=== PATIENT | female | born 1955 | race Caucasian/White ===

== ENCOUNTER 2018-09-07 00:41 | Outpatient (CLI) | payer BC, SELFPAY ==
--- NOTE | 2018-09-07 15:44 | DI.MAMMO_ITS ---
SYMPTOMS/DIAGNOSIS: SCREENING, Z12.31 BILATERAL SCREENING MAMMOGRAM: Comparison is made with exams from 2010 through 2016. The breasts are composed of fatty density tissue. No suspicious masses or suspicious microcalcifications are seen. There has been no significant change. IMPRESSION: Category 1A, negative mammogram. Routine screening is recommended. [facility] ASSESSMENT OF FINDINGS: Negative. Category 1. Patient will receive a letter notifying them of these results. BI-RAD category A. The breasts are almost entirely fatty.
== END 2018-09-07 01:01 ==
PROVIDERS: PCP Family Medicine; Visit Provider Family Medicine
DX: Z12.31 Encounter for screening mammogram for malignant neoplasm of breast (principal)
CPT/HCPCS: 77063; 77067

== ENCOUNTER 2018-12-24 14:26 | Outpatient (CLI) | payer BC, SELFPAY ==
--- NOTE | 2018-12-24 14:22 | DI.RAD_ITS ---
SYMPTOM/DIAGNOSIS: S/P REVISION RT TKA RIGHT KNEE: Comparison is made with 12 July 2017. The patient has undergone revision of the femoral component of the knee prosthesis with a long stem component. The tibial portion of the prosthesis as well as patellar component appear unchanged. There are no abnormal bony lucencies. IMPRESSION: No acute abnormality.
== END 2018-12-24 14:46 ==
PROVIDERS: PCP Family Medicine; Visit Provider Student in an Organized Health Care Education/Training Program
DX: M25.561 Pain in right knee (principal); Z96.651 Presence of right artificial knee joint; G89.29 Other chronic pain
CPT/HCPCS: 73560

== ENCOUNTER 2019-03-22 11:24 | Outpatient (REF) | payer BC, SELFPAY ==
[2019-03-25 09:50] LABS: Hepatitis C Ab w Rflx HCV PCR Negative (NEGAT)
== END 2019-03-22 11:44 ==
LOC: NCHCN 11:24
PROVIDERS: PCP Family Medicine; Visit Provider Family Medicine
DX: Z11.59 Encounter for screening for other viral diseases (principal)
CPT/HCPCS: 86803

== ENCOUNTER 2019-09-20 10:55 | Day surgery (SDC) | payer BC, SELFPAY ==
[2019-09-20 11:06] VITALS: BP 135/96; PULSE 90; RESP 17; TEMP 36.1; O2SAT 97
[2019-09-20] MEDS: Lactated Ringers 1,000 ML 80 ML IV (11:36)
--- NOTE | 2019-09-20 12:49 | W.PM.DSUDISC ---
Discharge Plan Disposition Patient Disposition: HOME Condition: Good Discharge Details Reason For Visit: Colonoscopy Attending Provider: Melvi Hoffman Primary Care Provider: Dona Silva Home Meds and New Rx's Prescriptions: Continued Centrum Silver Women 8 mg iron-400 mcg-300 mcg tablet 1 tab PO DAILY RF: 0 ibuprofen [Advil] 200 MG tablet 800 mg PO PRN RF: 0 lamotrigine 200 MG tablet 200 mg PO BID RF: 0 clonazepam [Klonopin] 2 MG tablet 2 mg PO DIRECTED RF: 0 dextroamphetamine-amphetamine [Adderall] 20 MG tablet 20 mg PO DAILY RF: 0 Discharge Instructions Additional Instructions: Findings: Your colonoscopy was normal. Follow up: Plan for colonoscopy in 5 years due to history of polyps Please call if you develop: fevers >101.5 Nausea or Vomiting Abdominal pain that is not transient DAY SURGERY UNIT POST COLONOSCOPY INSTRUCTIONS 1. Because there will be medication in your system for the next 24 hours, you may feel a little sleepy. Your coordination will be affected. Therefore: a. Do not drive or operate dangerous equipment for 24 hours. b. Do not drink alcohol beverages for 24 hours (not even beer). c. Plan to go home and rest for the day. 2. Generally there are no restrictions on your activity after a day or so has gone by, but you may feel a bit fatigued for a few days. 3 After you arrive home you may have a light meal and return to a normal diet as you can tolerate it without feeling sick to your stomach. 4. After surgery, you may feel pain or discomfort. This should be only transient, but if it persists please contact your doctor. 5. If there are any questions regarding the findings of your procedure, please feel free to contact your doctor. 6. If you are unable to contact your doctor with a problem, contact the hospital at [phone]. 7. Continue all your regular medications unless directed otherwise. I understand the above instructions and have no questions. Signature of Patient or Responsible Adult Escort Date/Time Name of Responsible Adult Escort Signature of Nurse Date/Time Activity:: Activity as Tolerated Diet:: As Tolerated Discharge Orders Discharge Orders: Discharge Order (Routine); Ordered 09/20/19 Ordered By: Melvi Hoffman DS: Diagnosis Discharge Diagnosis (1) Normal colonoscopy: Status: Acute
[2019-09-20 13:15] VITALS: BP 123/77; PULSE 68; RESP 17; TEMP 36.3; O2SAT 96
--- NOTE | 2019-09-23 10:26 | COLE_ITS ---
DATE OF PROCEDURE: September 20, 2019 PREOPERATIVE DIAGNOSIS: History of colon polyps. POSTOPERATIVE DIAGNOSIS: Normal colon. PROCEDURE: Colonoscopy. SURGEON: Melvi Hoffman M.D. ANESTHESIA: General. INDICATIONS: This is a 63-year-old lady whose last colonoscopy in 2013 showed two polyps. She prese nts for routine follow-up. She has no family history of colon cancer. PROCEDURE: She was placed in the left Elaine position. Propofol was titrated to sedation. Digital re ctal examination revealed no abnormalities. The scope was advanced to the cecum without difficulty. The ileocecal valve and appendiceal orifice were clearly identified. The scope was slowly withdrawn with no abnormalities seen within the ascending, transverse, descending, sigmoid colon or rectum, in cluding on retroflex view. She tolerated the procedure well and was stable to recovery. She will ne ed a follow-up colonoscopy again in five years, or sooner if symptoms indicate. cc: Dona Silva M.D.
== END 2019-09-20 14:03 | disposition home or self-care (01) ==
PROVIDERS: PCP Family Medicine; Visit Provider Surgery
PROC: 0DJD8ZZ Inspection of Lower Intestinal Tract, Via Natural or Artificial Opening Endoscopic (ICD-10-PCS; CPT 45378; principal; 2019-09-20 12:15)
DX: Z12.11 Encounter for screening for malignant neoplasm of colon (principal); Z86.010 Personal history of colon polyps; K21.9 Gastro-esophageal reflux disease without esophagitis
CPT/HCPCS: 45378

== ENCOUNTER 2019-12-09 14:33 | Outpatient (CLI) | payer BC, SELFPAY ==
--- NOTE | 2019-12-09 14:15 | DI.RAD_ITS ---
EXAM: XR KNEE RT 2V AP,LAT INDICATION: ANNUAL F/U. COMPARISON: XR knee RT 2V AP,lat from 12/24/2018 TECHNIQUE: 2D digital imaging was performed. FINDINGS: There are stable postsurgical changes of a right total knee replacement. No evidence of hardware karissa lure is seen. The bones are intact. Soft tissues are unremarkable.
--- NOTE | 2019-12-09 14:47 | DI.RAD_ITS ---
EXAM: XR SHOULDER RT COMPLETE 2+V INDICATION: eval R shoulder pain. COMPARISON: No exams were available for comparison TECHNIQUE: 2D digital imaging was performed. FINDINGS: There is an old healed fracture deformity of the right clavicle. Mild hypertrophic changes are seen at the acromioclavicular joint. There is a moderate-sized spur arising from the inferior aspect of t he acromion. Mild narrowing is seen at the greater tuberosity. The glenohumeral joint appears well maintained. Bones are intact and normally mineralized. The soft tissues are unremarkable. . IMPRESSION: Degenerative changes of the right shoulder.
== END 2019-12-09 14:53 ==
PROVIDERS: PCP Family Medicine; Visit Provider Student in an Organized Health Care Education/Training Program
DX: M25.511 Pain in right shoulder (principal); M75.81 Other shoulder lesions, right shoulder; M19.011 Primary osteoarthritis, right shoulder; Z96.651 Presence of right artificial knee joint; Z47.1 Aftercare following joint replacement surgery
CPT/HCPCS: 73030; 73560

== ENCOUNTER 2019-12-25 01:22 | Outpatient (CLI) | payer BC, SELFPAY ==
--- NOTE | 2019-12-25 08:46 | DI.NM_ITS ---
EXAM: NM HEPATOBILIARY CCK GRP CLINICAL HISTORY: EPIGASTRIC PAIN, R10.13. COMPARISON: No exams were available for comparison TECHNIQUE: 4.8 millicuries of technetium 99 M mebrofenin were administered IV. FINDINGS: There is normal hepatic uptake. The biliary tree is promptly visualized. The small bowel is also prom ptly visualized. 1.5 micrograms of CCK was administered via IV drip over 45 minutes. The gallbladder ejection fraction is 50 percent which is at the low normal range. The lower limit of normal is 40 pe rcent. IMPRESSION: Gallbladder ejection fraction is within the normal range.
== END 2019-12-25 01:42 ==
PROVIDERS: PCP Family Medicine; Visit Provider Family Medicine
DX: R10.13 Epigastric pain (principal)
CPT/HCPCS: 78227

== ENCOUNTER 2020-01-07 09:33 | Outpatient (REF) | payer BC, SELFPAY ==
[2020-01-07 12:38] LABS: HCT 41.7 % (36.0-46.0); HGB 13.8 g/dL (12.0-15.5); Mean Corp. HGB Concentration 33.1 g/dL (32.0-36.0); Mean Corpuscular Hemoglobin 29.4 pg (27.0-33.0); Mean Corpuscular Volume 88.7 fL (80-95); Mean Platelet Volume 10.8 fL (8.0-11.0); Platelet Count 201 x1000/uL (130-400); RBC Distribution Width 12.7 % (11.7-14.6); White Blood Cell Count 3.82 k/cumm (4.4-10.8)
[2020-01-07 14:47] LABS: ALT 15 U/L (14-59); AST 15 U/L (15-37); Albumin 3.7 g/dL (3.4-5.0); BUN 11 mg/dL (7-18); Bilirubin, Total 0.5 mg/dL (0.2-1.0); CREATININE 0.76 mg/dL (0.55-1.02); Chloride 107 mmol/L (98-107); Cholesterol 213 mg/dL (<200); Glucose 84 mg/dL (74-106); Sodium 144 mmol/L (136-145); Total Protein 6.5 g/dL (6.4-8.2); Triglyceride 94 mg/dL (<150)
[2020-01-07 15:11] LABS: Alkaline Phosphatase 81 U/L (46-116); Calcium 8.6 mg/dL (8.5-10.1); Calculated LDL 148 mg/dL (<100); HDL Cholesterol 47 mg/dL (40-60)
== END 2020-01-07 09:53 ==
LOC: NCHCN 09:33
PROVIDERS: PCP Family Medicine; Visit Provider Family Medicine
DX: Z00.00 Encounter for general adult medical examination without abnormal findings (principal); I10 Essential (primary) hypertension; R30.0 Dysuria
CPT/HCPCS: 80053; 80061; 85027; 87077; 87086; 87186

== ENCOUNTER 2020-01-16 18:14 | Outpatient (REF) | payer BC, SELFPAY ==
--- NOTE | 2020-01-16 16:00 | PAPFT_PTH ---
PATIENT: America Crump [facility] U[id number] AGE/SX: 64/F ROOM: RE01/16/[address]: Dona Silva : 1955 BED: DIS: 01/16/2020 SPEC #: [id number] RECD: 01/17/20 13:05 STATUS: GREGORY RECheng #: [id number] STEPHANIE: 01/16/20 16:[address]: Dona Silva DEPT: [facility] Cytology RECD BY: Rosalie Dodson Tissues: 1 - CX/ENDOCX FOR PAP SMEARS Procedures: PAP THIN PREP/UVM Screening HPV DNA PROBE Comments: [id number]
== END 2020-01-16 18:34 ==
LOC: NCHCN 18:14
PROVIDERS: PCP Family Medicine; Visit Provider Family Medicine
DX: Z00.00 Encounter for general adult medical examination without abnormal findings (principal); Z01.419 Encounter for gynecological examination (general) (routine) without abnormal findings; Z12.4 Encounter for screening for malignant neoplasm of cervix; Z11.51 Encounter for screening for human papillomavirus (HPV)
CPT/HCPCS: 88142; 87624

== ENCOUNTER 2020-01-24 15:19 | Outpatient (REF) | payer BC, SELFPAY | END 2020-01-24 15:39 | LOC: NCHCN 15:19 | PROVIDERS: PCP Family Medicine; Visit Provider Family Medicine | DX: R30.0 Dysuria (principal) | CPT/HCPCS: 87077; 87086; 87186 ==

== ENCOUNTER 2020-03-09 14:45 | Outpatient (REF) | payer BC, SELFPAY | END 2020-03-09 15:05 | LOC: NCHCN 14:45 | PROVIDERS: PCP Family Medicine; Visit Provider Family Medicine | DX: R30.0 Dysuria (principal) | CPT/HCPCS: 87077; 87086; 87186 ==

== ENCOUNTER 2020-09-04 03:58 | Outpatient (CLI) | payer BC, SELFPAY ==
--- NOTE | 2020-09-04 13:10 | DI.MAMMO_ITS ---
EXAM: MG MAMMO SCREENING CLINICAL HISTORY: SCREENING, Z12.31 TECHNIQUE: Mammograms were interpreted according to the usual protocol including computer analysis w [employer] system, tomosynthesis and C-view imaging. COMPARISON: FINDINGS: The breasts are of moderate density with fairly symmetrical distribution of fibroglandular tissue. N o dominant mass or clumped microcalcification is identified in either breast. The current examinatio n is compared with previous examinations including August 2018 and there has been no gross interval change in appearance in comparison with the prior studies. IMPRESSION: No specific evidence of malignancy at this time. Routine screening examinations are suggested at yea rly intervals in this age group according to the ACS ACR guidelines. BI-RADS Category 1 - Negative Breast Density - Category B - Scattered areas of fibroglandular density
== END 2020-09-04 04:18 ==
PROVIDERS: PCP Family Medicine; Visit Provider Family Medicine
DX: Z12.31 Encounter for screening mammogram for malignant neoplasm of breast (principal)
CPT/HCPCS: 77063; 77067

== ENCOUNTER 2020-11-09 12:50 | Outpatient (REF) | payer BC, SELFPAY ==
[2020-11-09 21:28] LABS: HCT 44.7 % (36.0-46.0); HGB 14.6 g/dL (11.2-15.7); MCHC 32.7 % (32.0-36.0); MCV 88.7 fL (80-95); MPV 10.7 fL (8.0-11.0); Platelet Count 230 10^3/uL (130-400); RBC 5.04 10^6/uL (3.93-5.22); RDW 11.9 % (11.7-14.6); RDW-SD 38.5 fL; WBC 3.68 10^3/uL (4.4-10.8)
[2020-11-09 21:51] LABS: ALT 13 U/L (14-59); AST 13 U/L (15-37); Albumin 3.8 g/dL (3.4-5.0); Alkaline Phosphatase 90 U/L (46-116); Anion Gap 9.3 mmol/L (3-11); BUN 13 mg/dL (7-18); Bilirubin, Total 0.7 mg/dL (0.2-1.0); CO2 26.7 mmol/L (21.0-32.0); CREATININE 0.93 mg/dL (0.55-1.02); Calcium 8.8 mg/dL (8.5-10.1); Calculated LDL 161 mg/dL (<100); Chloride 109 mmol/L (98-107); Cholesterol 228 mg/dL (<200); Glucose 94 mg/dL (74-106); HDL Cholesterol 50 mg/dL (40-60); Sodium 145 mmol/L (136-145); Total Protein 6.8 g/dL (6.4-8.2); Triglyceride 87 mg/dL (<150)
== END 2020-11-09 13:10 ==
LOC: NCHCN 12:50
PROVIDERS: PCP Family Medicine; Visit Provider Family Medicine
DX: Z00.00 Encounter for general adult medical examination without abnormal findings (principal); I10 Essential (primary) hypertension
CPT/HCPCS: 80053; 80061; 85027

== ENCOUNTER 2021-05-03 22:40 | Outpatient (REF) | payer BC, SELFPAY | END 2021-05-03 22:41 | disposition home or self-care (01) | LOC: NCHCN 22:40 | PROVIDERS: PCP Family Medicine; Visit Provider Family Medicine | DX: R30.0 Dysuria (principal) | CPT/HCPCS: 87077; 87086; 87186 ==

== ENCOUNTER 2021-05-14 13:25 | Outpatient (REF) | payer BC, SELFPAY | END 2021-05-14 13:26 | disposition home or self-care (01) | LOC: NCHCN 13:25 | PROVIDERS: PCP Family Medicine; Visit Provider Family Medicine | DX: R30.0 Dysuria (principal) | CPT/HCPCS: 87086 ==

== ENCOUNTER 2021-08-05 09:31 | Outpatient (REF) | payer BC, SELFPAY ==
[2021-08-05 16:22] LABS: Hemoglobin A1C 5.2 % (<5.7)
[2021-08-05 16:33] LABS: ALT 17 U/L (14-59); AST 15 U/L (15-37); Albumin 3.8 g/dL (3.4-5.0); Alkaline Phosphatase 96 U/L (46-116); Anion Gap 8.9 mmol/L (3-11); BUN 8 mg/dL (7-18); Bilirubin, Total 0.3 mg/dL (0.2-1.0); CO2 27.1 mmol/L (21.0-32.0); Calcium 8.8 mg/dL (8.5-10.1); Calculated LDL 160 mg/dL (<100); Chloride 108 mmol/L (98-107); Cholesterol 229 mg/dL (<200); Glucose 85 mg/dL (74-106); HDL Cholesterol 54 mg/dL (40-60); Potassium 4.6 mmol/L (3.5-5.1); Sodium 144 mmol/L (136-145); Total Protein 6.8 g/dL (6.4-8.2); Triglyceride 76 mg/dL (<150)
== END 2021-08-05 09:32 | disposition home or self-care (01) ==
LOC: NCHCN 09:31
PROVIDERS: PCP Family Medicine; Visit Provider Family Medicine
DX: I10 Essential (primary) hypertension (principal); Z00.00 Encounter for general adult medical examination without abnormal findings
CPT/HCPCS: 80053; 80061; 83036

== ENCOUNTER 2022-08-08 14:52 | Outpatient (REF) | payer BC, SELFPAY ==
[2022-08-08 15:36] LABS: HGB 13.9 g/dL (11.2-15.7); MCH 29.1 pg (27.0-33.0); MCHC 33.1 % (32.0-36.0); MCV 88 fL (80-95); MPV 10.7 fL (8.0-11.0); Platelet Count 203 10^3/uL (130-400); RBC 4.77 10^6/uL (3.93-5.22); RDW-SD 39.1 fL; WBC 4.11 10^3/uL (4.4-10.8)
[2022-08-08 16:02] LABS: ALT 22 U/L (14-59); AST 20 U/L (15-37); Albumin 3.7 g/dL (3.4-5.0); Alkaline Phosphatase 92 U/L (46-116); Anion Gap 8.2 mmol/L (3-11); BUN 16 mg/dL (7-18); Bilirubin, Total 0.5 mg/dL (0.2-1.0); CO2 28.8 mmol/L (21.0-32.0); CREATININE 0.9 mg/dL (0.55-1.02); Calcium 8.6 mg/dL (8.5-10.1); Calculated LDL 78 mg/dL (<100); Chloride 107 mmol/L (98-107); Cholesterol 150 mg/dL (<200); Estimated GFR 71.39 (mL/min/1.73m2); Glucose 81 mg/dL (74-106); HDL Cholesterol 59 mg/dL (40-60); Sodium 144 mmol/L (136-145); Total Protein 6.8 g/dL (6.4-8.2); Triglyceride 66 mg/dL (<150)
== END 2022-08-08 14:53 | disposition home or self-care (01) ==
LOC: NCHCN 14:52
PROVIDERS: PCP Family Medicine; Visit Provider Family Medicine
DX: I10 Essential (primary) hypertension (principal); E66.9 Obesity, unspecified; Z00.00 Encounter for general adult medical examination without abnormal findings
CPT/HCPCS: 80053; 80061; 85027

== ENCOUNTER 2022-09-18 10:31 | Emergency (ER) | payer BC, SELFPAY ==
[2022-09-18 10:37] VITALS: BP 135/80; PULSE 86; RESP 16; TEMP 36.9; O2SAT 99
--- NOTE | 2022-09-18 10:45 | DI.RAD_ITS ---
Exam(s) XR HEEL LT OS CALCIS EXAM: XR HEEL LT OS CALCIS CLINICAL HISTORY: fall/pain. TECHNIQUE: 2D digital imaging was performed. COMPARISON: CR XR ANKLE 3 VIEWS LEFT from 11/30/2019 FINDINGS: Two views of the calcaneus: No evidence of fracture. Boehler's angle maintained. No radiographic evidence of skin ulcer nor ost eomyelitis. No foreign body. Bone density appears normal. Inferior calcaneal spur is noted. IMPRESSION: No acute osseous findings. DATA REPOSITORY: RADIATION DOSE DELIVERED:
--- NOTE | 2022-09-18 10:45 | DI.RAD_ITS ---
Exam(s) XR KNEE LT 4V+ EXAM: XR KNEE LT 4V+ CLINICAL HISTORY: fall/pain. TECHNIQUE: 2D digital imaging was performed. COMPARISON: CR XR KNEE RT 2V AP,LAT from 12/09/2019 FINDINGS: Four views: There is no evidence of obvious acute fracture nor obvious joint effusion. No joint space narrowing. Mild degenerative changes. On the AP view there is a 2 millimeter osteophytic density seen the joint space just above the tibial spine. Other possibly this may represent an independent loose intra-articular body. IMPRESSION: Findings as above. Cannot exclude avulsion injury of the tibial spine which would often be associate d with ACL injury. If clinically indicated follow-up knee MRI can be performed. DATA REPOSITORY: RADIATION DOSE DELIVERED:
--- NOTE | 2022-09-18 10:49 | W.ED.GENAD ---
Discharge Plan Disposition Patient Disposition: HOME Condition: Stable Discharge Details Clinical Impression: Fracture of left tibial spine Primary Care Provider: Dona Silva ED Provider: Andrews Velasquez Home Meds and New Rx's Prescriptions: Continued estradiol [Yuvafem] 10 mcg tablet 10 mcg vaginal DAILY ibuprofen [Advil] 200 MG tablet 800 mg PO PRN clonazepam 1 mg tablet 1 mg PO BID PRN dextroamphetamine-amphetamine [Adderall XR] 25 mg capsule,extended release 24hr 25 mg PO DAILY rosuvastatin [Crestor] 20 mg tablet 20 mg PO DAILY lamotrigine 200 MG tablet 200 mg PO BID Discharge Instructions Additional Instructions: X-ray and CT imaging reveals a nondisplaced fracture of the lateral tibial spine. Wear the hinged knee brace until reevaluation with orthopedics. I would also use your walker at home to help protect your ambulating but you may bear weight as you have been bearing weight for the past 2 weeks. Given your overall presentation I have also set you up for an ultrasound tomorrow, radiology will be reaching out to set this up. After the ultrasound you return to the ER for the results. Otherwise reach out to the orthopedic group tomorrow to discuss your ER visit set up outpatient reevaluation Referrals: Winston Regan MD [ [facility] STAFF PHYSICIAN] - Discharge Data Discharge Date/Time-TO BE ENTERED AT DEPARTURE: 09/18/22 14:32 Medical Decision Making This is a 66-year-old female who reports that she had a fall approximately 2 weeks ago injuring her left knee. Subsequently felt the injury was getting better but is unsure because she states she has a high pain tolerance. Yesterday, no additional injury, awoke with increased knee and left heel pain. Clinically she appears well, nontoxic but does ambulate with an antalgic gait. There is diffuse knee discomfort, slight leg swelling, and calcaneal pain. No erythema or warmth. Difficult to say whether this swelling is secondary to the trauma 2 weeks ago or completely unrelated. While this appears more musculoskeletal in nature I do believe obtaining an ultrasound is reasonable, we will set her up for ultrasound tomorrow. We will obtain x-ray of the left knee and calcaneus. X-ray of calcaneus unremarkable. X-ray of left knee concerning for avulsion of the tibial spine. Case discussed with Dr. Regan, patient has been ambulatory for 2 weeks on this injury, recommend a hinged brace, protective ambulation moving forward, and he will be happy to follow the patient in his clinic. He does state that a CT may be beneficial for additional information here in the ER and they could pursue MRI as an outpatient if necessary. This plan was discussed with patient. CT obtained and results are as below. Hinged knee brace applied. She has a walker at home that she can use. Patient reports the brace certainly feels better. While she does have a known injury, the circumstances regarding her discomfort is slightly atypical and I do believe obtaining ultrasound is still reasonable. Appropriate paperwork completed for ultrasound tomorrow. Standard discharge and return precautions were provided. Patient understands, is agreeable to this plan, and has no additional questions or concerns upon discharge. This documentation was generated using [employer] system, please disregard any oddities of phrase or misspellings. Medical Records Medical records reviewed: Yes I reviewed the patient's medical records. Imaging Data Radiologic Study: Attestation: I personally reviewed and interpreted this imaging study as follows: Imaging: X-Ray Radiologist's impression: PROCEDURE INFORMATION: Exam: XR Left Calcaneus Exam date and time: 09/18/2022 11:45 AM Age: 66 years old Clinical indication: Other: Fall/ pain; Patient HX: Fall/pain TECHNIQUE: Imaging protocol: Radiologic exam of the Left calcaneus. Views: 2 or more views. COMPARISON: CR XR ANKLE 3 VIEWS LEFT 11/30/2019 1:37 PM FINDINGS: Bones/joints: There is a 0.8 cm plantar spur. Minimal enthesopathic changes in the posterosuperior calcaneal tuberosity. Soft tissues: Normal. IMPRESSION: No acute fracture or dislocation. Radiologic Study #2: Attestation: I personally reviewed and interpreted this imaging study as follows: Imaging: X-Ray Radiologist's impression: PROCEDURE INFORMATION: Exam: XR Left Knee Exam date and time: 09/18/2022 11:48 AM Age: 66 years old Clinical indication: Other: Fall/pain TECHNIQUE: Imaging protocol: Radiologic exam of the Left knee. Views: 4 or more views. COMPARISON: CR XR HEEL LT OS CALCIS 09/18/2022 11:45 AM FINDINGS: Bones/joints: There is subtle nondisplaced fracture of lateral tibial spine in the intercondylar region suspected, best seen in the AP view . Mild DJD with marginal spurring and spurring of the medial tibial spine noted. Soft tissues: Normal. IMPRESSION: Subtle avulsion fracture of the lateral tibial spine in the intercondylar region suspected seen in the AP view. Radiologic Study #3: Attestation: I personally reviewed and interpreted this imaging study as follows: Imaging: X-Ray Radiologist's impression: PROCEDURE INFORMATION: Exam: CT Left Lower Extremity With Contrast, Knee Exam date and time: 09/18/2022 12:31 PM Age: 66 years old Clinical indication: Left; Patient HX: Lt knee pain, tibial spine FX seen on x-ray TECHNIQUE: Imaging protocol: CT of the Left lower extremity with intravenous contrast was performed. Exam focused on the knee. Radiation optimization: All CT scans at this facility use at least one of these dose optimization techniques: automated exposure control; mA and/or kV adjustment per patient size (includes targeted exams where dose is matched to clinical indication); or iterative reconstruction. COMPARISON: CR XR KNEE LT 4V+ 09/18/2022 11:48 AM FINDINGS: Bones/joints: Small nondisplaced cortical irregularity suspicious of occult fracture of the posterior aspect of the lateral tibial spine in the intercondylar region ( 78 series 2, 309 series 4). There is a 3 mm loose body superior to the medial tibial spine (38 series 6). No definite fracture of the medial tibial spine. Additionally, punctate loose bodies in the intercondylar region (37 series 6). Otherwise, mild narrowing of the lateral compartment. Mild narrowing in the patellofemoral compartment along the lateral patellar facet. . No significant joint effusion. Minimal osteochondral defects in the femoral trochlea (53 series 2 ) and medial and lateral tibial plateau, likely degenerative. Spurring in the medial and the lateral femoral condyles. Soft tissues: Mild edema in the subcutaneous soft tissues anteriorly most pronounced anterior to the patella. Trace edema in the medial subcutaneous soft tissues. Mild edema noted in the Hoffa fat pad IMPRESSION: Subtle cortical irregularity in the posterior lateral tibial spine which corresponds to the x-ray abnormality suspicious of nondisplaced occult fracture of the lateral tibial spine. Additional punctate loose bodies in the intercondylar region with a 3 mm loose body superior to the medial tibial spine.Otherwise, no acute fracture. No dislocation. Mild edema in the Hoffa fat pad and superficial anteromedial soft tissues. If the patient continues to have pain, consider follow-up with MRI to exclude any ligamentous or meniscal injury. Thank you for allowing us to participate in the care of your patient. HPI General Mode of arrival: ambulatory. Date/Time Provider Initiated Documentation: 09/18/22 10:49. Limitations to Documentation: no limitations. Information obtained by: patient. HPI Narrative: This is a 66-year-old female, past medical history of anxiety, fibromyalgia, hyperlipidemia, GERD, presenting to the ER for left leg pain. Patient reports that she had a mechanical fall a couple of weeks ago injuring her left knee, it was sore for a couple of days but then seemed to get better. She reports that on second maybe she has had pain in that area the entire time but simply has a high pain tolerance and is unsure if the pain is related to the fall or not. She states that she has a walker at home but has not been using it. She states that yesterday morning she awoke with pain in her heel which has not been present over the past couple of weeks. This feels new and different than her other pain. She denies redness, chest pain, shortness of breath, history of DVT or PE. She has not tried any [id number] medications for her symptoms. Related Data Home Medications Medication Instructions Recorded Confirmed lamotrigine 200 mg tablet 200 mg PO BID 06/09/14 08/25/22 ibuprofen 200 mg tablet (Advil) 800 mg PO PRN 07/12/17 08/25/22 clonazepam 1 mg tablet 1 mg PO BID PRN 05/11/22 08/25/22 dextroamphetamine-amphetamine ER 25 mg PO DAILY 05/11/22 08/25/22 25 mg 24hr capsule,extend release (Adderall XR) rosuvastatin 20 mg tablet (Crestor) 20 mg PO DAILY 05/11/22 08/25/22 estradiol 10 mcg vaginal tablet 10 mcg vaginal DAILY 07/26/22 08/25/22 (Yuvafem) Allergies Allergy/AdvReac Type Severity Reaction Status Date / Time citalopram Allergy Severe unknown Verified 08/25/22 11:10 codeine Allergy Intermediate unknown Verified 08/25/22 11:10 fluoxetine [From Prozac] AdvReac Intermediate unknown Verified 08/25/22 11:10 sulfamethoxazole AdvReac Intermediate Nausea Verified 08/25/22 11:10 [From Bactrim] trimethoprim [From Bactrim] AdvReac Intermediate Nausea Verified 08/25/22 11:10 duloxetine [From Cymbalta] AdvReac Mild unknown Verified 08/25/22 11:10 General Stated Complaint: Orthopedic MAKENZIE: 3 Review of Systems Constitutional Constitutional: Denies fever(s) and Denies weakness Cardiovascular Cardiovascular: Denies chest pain and Denies dyspnea Respiratory Respiratory: Denies cough and Denies dyspnea Musculoskeletal Musculoskeletal: Reports arthralgias, Denies numbness, Reports stiffness and Denies tingling Integumentary/Breasts Skin/Breast: Denies rash Neurologic Neurologic: Denies numbness, Denies tingling and Denies weakness Hematologic/Lymphatic Hematologic/Lymphatic: Denies easy bleeding and Denies easy bruising PFSH All Active Problems Fracture of left tibial spine (Acute) Trigger finger, left middle finger (Acute) Bilateral carpal tunnel syndrome (Acute) Dupuytren's contracture of left hand (Acute) Left hand pain (Acute) Paresthesias in left hand (Acute) Impingement syndrome of right shoulder (Acute) Normal colonoscopy (Acute) Fibromyalgia (Acute) Insomnia (Acute) Anxiety (Chronic) ADD (attention deficit disorder) (Acute) Adenomatous polyps (Acute) 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) Medical History Adenomatous colon polyp GERD (gastroesophageal reflux disease) Loose right total knee arthroplasty PTSD (post-traumatic stress disorder) Surgical History H/O colonoscopy H/O esophagogastroduodenoscopy H/O wisdom tooth extraction Status post laparoscopic Lisa fundoplication Social History Smoking/Tobacco Use Status: Former Tobacco Use Quit Date: 11/27/96 Smoking risk assessment performed?: Yes Alcohol Intake: former Drug use: Never Substance use type: does not use Do you feel safe at home: Yes Do you feel safe in your relationship?: Yes Exam Const General: cooperative, healthy appearing, comfortable and no acute distress Orientation: alert and awake [facility] Head: normal to inspection, normocephalic and atraumatic Eyes Conjunctivae: conjunctivae normal Neck Neck: normal visual inspection, full ROM, trachea midline and supple Resp Effort & Inspection: normal respiratory effort and able to speak in complete sentences Auscultation: clear to auscultation bilaterally Cardio Rate: regular rate Rhythm: regular rhythm Skin General skin exam: no rashes or lesions noted Neuro General: patient alert, patient awake, moves all extremities and no focal motor deficits Cognition: normal cognition Speech: speech normal Gait: antalgic Motor: muscle tone normal throughout Sensory Exam: no sensory deficits noted Extrem General: capillary refill normal Other: Right lower extremity unremarkable. Left lower extremity, calf slightly larger when compared to the right calf. Normal pedal pulse and capillary refill. There is diffuse mild calcaneal discomfort on the left side but no swelling or erythema. Neuro, vascular, tendon intact. Left knee with full extension but limited flexion. Knee is stable, no laxity. There is diffuse discomfort across both the anterior and posterior aspect of the knee. No erythema or warmth. Psych Appearance: grossly normal Mental Status: mental status grossly normal Course Vital Signs Vital signs: Vital Signs Temperature 36.9 C 09/18/22 10:37 Pulse 86 09/18/22 10:37 Respiratory Rate 16 09/18/22 10:37 Blood Pressure 135/80 09/18/22 10:37 Pulse Oximetry 99 09/18/22 10:37 Temperature 36.9 C 09/18/22 10:37 Temperature Source Skin 09/18/22 10:37 Pulse 86 09/18/22 10:37 Respiratory Rate 16 09/18/22 10:37 Blood Pressure 135/80 09/18/22 10:37 Blood Pressure Position Sitting 09/18/22 10:37 Pulse Oximetry 99 09/18/22 10:37 Oxygen Delivery Method Room Air 09/18/22 10:37 Oxygen Flow Rate 0 09/18/22 10:37 Pain Level 3 09/18/22 10:37 Comment 09/18/22 10:37
--- NOTE | 2022-09-18 12:03 | DI.VRAD_ITS ---
PROCEDURE INFORMATION: Exam: XR Left Calcaneus Exam date and time: 09/18/2022 11:45 AM Age: 66 years old Clinical indication: Other: Fall/ pain; Patient HX: Fall/pain TECHNIQUE: Imaging protocol: Radiologic exam of the Left calcaneus. Views: 2 or more views. COMPARISON: CR XR ANKLE 3 VIEWS LEFT 11/30/2019 1:37 PM FINDINGS: Bones/joints: There is a 0.8 cm plantar spur. Minimal enthesopathic changes in the posterosuperior calcaneal tuberosity. Soft tissues: Normal. IMPRESSION: No acute fracture or dislocation. Dictated and Authenticated by: Hernandez Cartagena MD. Ordering:HIWOT Sparrow MD
--- NOTE | 2022-09-18 12:10 | DI.VRAD_ITS ---
PROCEDURE INFORMATION: Exam: XR Left Knee Exam date and time: 09/18/2022 11:48 AM Age: 66 years old Clinical indication: Other: Fall/pain TECHNIQUE: Imaging protocol: Radiologic exam of the Left knee. Views: 4 or more views. COMPARISON: CR XR HEEL LT OS CALCIS 09/18/2022 11:45 AM FINDINGS: Bones/joints: There is subtle nondisplaced fracture of lateral tibial spine in the intercondylar region suspected, best seen in the AP view . Mild DJD with marginal spurring and spurring of the medial tibial spine noted. Soft tissues: Normal. IMPRESSION: Subtle avulsion fracture of the lateral tibial spine in the intercondylar region suspected seen in the AP view. Dictated and Authenticated by: Hernandez Cartagena MD. Ordering:HIWOT Sparrow MD
--- NOTE | 2022-09-18 12:15 | DI.CT_ITS ---
Exam(s) CT LOWER EXTREMITY LT WO EXAM: CT LOWER EXTREMITY LT WO CLINICAL HISTORY: knee, tibial spine fx on xray. TECHNIQUE: Imaging Protocol: Axial computed tomography images with coronal and sagittal reformatted images were created and reviewed. CONTRAST MATERIAL: None COMPARISON: CT RIGHT LOWER EXTREM WO CONTRAST from 08/01/2017 FINDINGS: There are no fracture lines evident in the tibial plateau nor in the distal femur and condyles nor in the fibular head and neck. There are few small calcific densities evident in the mid aspect of the knee joint. On the lateral view 1 of these appears to be possible fracture through the upper aspect of the tibial spine. There are some degenerative changes in the medial lateral compartments-mild mod erate. Also mild degenerative changes in the patellofemoral compartment. Mild amount of increased fluid noted in the suprapatellar bursa. IMPRESSION: There appears to be a nondisplaced avulsion fragment at the tibial spine level. Recommend follow-up MRI. RADIATION DOSE DELIVERED: 291.9mGy.cm Total DLP DATA REPOSITORY: All CT scans at this facility are submitted to the National Radiology Data Registry (NRDR) Dose Index Registry (DIR) with the [employer] ([employer]). RADIATION OPTIMIZATION: All CT scans at this facility use at least one of these dose optimization te chniques: automated exposure control; mA and/or kV adjustment per patient size (includes targeted exa ms where dose is matched to clinical indication); or iterative reconstruction.
[2022-09-18 12:17] VITALS: BP 124/76; PULSE 69; RESP 16; O2SAT 98
--- NOTE | 2022-09-18 13:28 | DI.VRAD_ITS ---
PROCEDURE INFORMATION: Exam: CT Left Lower Extremity With Contrast, Knee Exam date and time: 09/18/2022 12:31 PM Age: 66 years old Clinical indication: Left; Patient HX: Lt knee pain, tibial spine FX seen on x-ray TECHNIQUE: Imaging protocol: CT of the Left lower extremity with intravenous contrast was performed. Exam focused on the knee. Radiation optimization: All CT scans at this facility use at least one of these dose optimization techniques: automated exposure control; mA and/or kV adjustment per patient size (includes targeted exams where dose is matched to clinical indication); or iterative reconstruction. COMPARISON: CR XR KNEE LT 4V+ 09/18/2022 11:48 AM FINDINGS: Bones/joints: Small nondisplaced cortical irregularity suspicious of occult fracture of the posterior aspect of the lateral tibial spine in the intercondylar region ( 78 series 2, 309 series 4). There is a 3 mm loose body superior to the medial tibial spine (38 series 6). No definite fracture of the medial tibial spine. Additionally, punctate loose bodies in the intercondylar region (37 series 6). Otherwise, mild narrowing of the lateral compartment. Mild narrowing in the patellofemoral compartment along the lateral patellar facet. . No significant joint effusion. Minimal osteochondral defects in the femoral trochlea (53 series 2 ) and medial and lateral tibial plateau, likely degenerative. Spurring in the medial and the lateral femoral condyles. Soft tissues: Mild edema in the subcutaneous soft tissues anteriorly most pronounced anterior to the patella. Trace edema in the medial subcutaneous soft tissues. Mild edema noted in the Hoffa fat pad IMPRESSION: Subtle cortical irregularity in the posterior lateral tibial spine which corresponds to the x-ray abnormality suspicious of nondisplaced occult fracture of the lateral tibial spine. Additional punctate loose bodies in the intercondylar region with a 3 mm loose body superior to the medial tibial spine. Otherwise, no acute fracture. No dislocation. Mild edema in the Hoffa fat pad and superficial anteromedial soft tissues. If the patient continues to have pain, consider follow-up with MRI to exclude any ligamentous or meniscal injury. Dictated and Authenticated by: Hernandez Cartagena MD. Ordering:HIWOT Sparrow MD
== END 2022-09-18 14:32 | disposition home or self-care (01) ==
PROVIDERS: Emergency Provider Physician Assistant; PCP Family Medicine
DX: S82.115A Nondisplaced fracture of left tibial spine, initial encounter for closed fracture (principal); W19.XXXA Unspecified fall, initial encounter
CPT/HCPCS: 99284; 73564; 73650; 73700

== ENCOUNTER 2022-09-19 15:24 | Emergency (ER) | payer BC, SELFPAY ==
[2022-09-19 15:28] VITALS: BP 129/85; PULSE 104; RESP 18; TEMP 36.4; O2SAT 96
--- NOTE | 2022-09-19 17:30 | W.ED.GENAD ---
Discharge Plan Disposition Patient Disposition: HOME Condition: Stable Discharge Details Clinical Impression: Encounter to discuss test results Primary Care Provider: Dona Silva ED Provider: Liz Byers Home Meds and New Rx's Prescriptions: No Action estradiol [Yuvafem] 10 mcg tablet 10 mcg vaginal DAILY ibuprofen [Advil] 200 MG tablet 800 mg PO PRN clonazepam 1 mg tablet 1 mg PO BID PRN dextroamphetamine-amphetamine [Adderall XR] 25 mg capsule,extended release 24hr 25 mg PO DAILY rosuvastatin [Crestor] 20 mg tablet 20 mg PO DAILY lamotrigine 200 MG tablet 200 mg PO BID Discharge Instructions Instructions: Leg Pain (ED) Additional Instructions: The ultrasound is negative for any blood clots. Please follow-up with orthopedics as previously instructed. Follow up with primary care provider in 3-5 days. Return to ED sooner if any worsening or concerns. Increase oral fluids. Referrals: Winston Regan MD [ [facility] STAFF PHYSICIAN] - Discharge Data Discharge Date/Time-TO BE ENTERED AT DEPARTURE: 09/19/22 17:41 Medical Decision Making Discussed negative ultrasound with patient who verbalized understanding. Patient discharged to home. HPI General Mode of arrival: ambulatory. Date/Time Provider Initiated Documentation: 09/19/22 15:31. Limitations to Documentation: no limitations. Information obtained by: patient, RN notes reviewed and old records reviewed. HPI Narrative: Patient here for US results. Negative for DVT. Discussed results and follow-up with Ortho verbalized understanding. No further questions. Related Data Home Medications Medication Instructions Recorded Confirmed lamotrigine 200 mg tablet 200 mg PO BID 06/09/14 09/19/22 ibuprofen 200 mg tablet (Advil) 800 mg PO PRN 07/12/17 09/19/22 clonazepam 1 mg tablet 1 mg PO BID PRN 05/11/22 09/19/22 dextroamphetamine-amphetamine ER 25 mg PO DAILY 05/11/22 09/19/22 25 mg 24hr capsule,extend release (Adderall XR) rosuvastatin 20 mg tablet (Crestor) 20 mg PO DAILY 05/11/22 09/19/22 estradiol 10 mcg vaginal tablet 10 mcg vaginal DAILY 07/26/22 09/19/22 (Yuvafem) Allergies Allergy/AdvReac Type Severity Reaction Status Date / Time citalopram Allergy Severe unknown Verified 09/19/22 15:31 codeine Allergy Intermediate unknown Verified 09/19/22 15:31 fluoxetine [From Prozac] AdvReac Intermediate unknown Verified 09/19/22 15:31 sulfamethoxazole AdvReac Intermediate Nausea Verified 09/19/22 15:31 [From Bactrim] trimethoprim [From Bactrim] AdvReac Intermediate Nausea Verified 09/19/22 15:31 duloxetine [From Cymbalta] AdvReac Mild unknown Verified 09/19/22 15:31 General Stated Complaint: Recheck MAKENZIE: 4 Review of Systems Musculoskeletal Musculoskeletal: Reports arthralgias PFSH All Active Problems Fracture of left tibial spine (Acute) Encounter to discuss test results (Acute) Trigger finger, left middle finger (Acute) Bilateral carpal tunnel syndrome (Acute) Dupuytren's contracture of left hand (Acute) Left hand pain (Acute) Paresthesias in left hand (Acute) Impingement syndrome of right shoulder (Acute) Normal colonoscopy (Acute) Fibromyalgia (Acute) Insomnia (Acute) Anxiety (Chronic) ADD (attention deficit disorder) (Acute) Adenomatous polyps (Acute) 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) Medical History Adenomatous colon polyp GERD (gastroesophageal reflux disease) Loose right total knee arthroplasty PTSD (post-traumatic stress disorder) Surgical History H/O colonoscopy H/O esophagogastroduodenoscopy H/O wisdom tooth extraction Status post laparoscopic Lisa fundoplication Social History Smoking/Tobacco Use Status: Former Tobacco Use Quit Date: 11/27/96 Smoking risk assessment performed?: Yes Alcohol Intake: former Drug use: Never Substance use type: does not use Do you feel safe at home: Yes Do you feel safe in your relationship?: Yes Exam Extrem Left lower extremity: normal to inspection (Presents wearing a knee immobilizer and using a walker) and normal capillary refill Course Vital Signs Vital signs: Vital Signs Temperature 36.4 C L 09/19/22 15:28 Pulse 104 H 09/19/22 15:28 Respiratory Rate 18 09/19/22 15:28 Blood Pressure 129/85 09/19/22 15:28 Pulse Oximetry 96 09/19/22 15:28 Temperature 36.4 C L 09/19/22 15:28 Temperature Source Tympanic 09/19/22 15:28 Pulse 104 H 09/19/22 15:28 Respiratory Rate 18 09/19/22 15:28 Respiratory Effort Non-Labored 09/19/22 15:31 Blood Pressure 129/85 09/19/22 15:28 Pulse Oximetry 96 09/19/22 15:28 Oxygen Delivery Method Room Air 09/19/22 15:28 Oxygen Flow Rate 0 09/19/22 15:28 Pain Level 5 09/19/22 15:28
== END 2022-09-19 17:41 | disposition home or self-care (01) ==
PROVIDERS: Emergency Provider Registered Nurse Emergency; PCP Family Medicine
DX: Z71.2 Person consulting for explanation of examination or test findings (principal)

== ENCOUNTER → 2022-11-23 01:39 | Outpatient (CLI) | payer BC, SELFPAY ==
--- NOTE | 2022-11-23 | DI.MAMMO_ITS ---
Exam(s) MAMMO SCREENING EXAM: MAMMO SCREENING CLINICAL HISTORY: SCREENING MAMMO Z12.31 TECHNIQUE: Bilateral full field digital CC and MLO mammographic images were obtained with 3D tomosyn thesis and utilizing computer aided detection (CAD). COMPARISON: Available for comparison. FINDINGS: Masses/Architectural Distortion: None seen. Microcalcifications: No suspicious pleomorphic-type are seen. Skin Thickening/Nipple Retraction: None. IMPRESSION: 1. No significant interval change with no specific features of malignancy noted. 2. Unless there is more urgent need, screening mammography is recommended, as per [employer] guidelines. BI-RADS Category 1 - Negative Breast Density - Category B - Scattered areas of fibroglandular density Breast density category C or D implies that the patient has dense breast tissue. Dense breast tissue is very common and is not abnormal but dense breast tissue can make it harder to find cancer on a ma mmogram. Also, dense breast tissue may increase their breast cancer risk. This information about the result of the mammogram report was provided to the patient to raise their awareness. Use this report when you speak with the patient about their risks for breast cancer, which includes their family hist ory. At that time, you may recommend for more screening tests (Ultrasound or MRI) as they might be us eful based on their risk. A negative radiographic report should not delay biopsy if a dominant or clinically suspicious mass is present. Up to ten percent of cancers are not identified on mammography. A negative report may reinforce clinical impression. Adenosis and dense breasts may obscure an underlying neoplasm. False positive reports average 6 to 10%. Patient will receive a letter notifying them of these results.
== END ==
PROVIDERS: PCP Family Medicine; Visit Provider Family Medicine
DX: Z12.31 Encounter for screening mammogram for malignant neoplasm of breast (principal)
CPT/HCPCS: 77063; 77067

== ENCOUNTER 2023-02-23 16:08 | Outpatient (REF) | payer MEDICARE, SELFPAY ==
[2023-02-24 22:37] LABS: Campylobacter PCR Negative (Negative); Salmonella PCR Negative (Negative); Shiga Toxin PCR Negative (Negative); Shigella/Enteroinvasive Ecoli Negative (Negative)
== END 2023-02-23 16:09 | disposition home or self-care (01) ==
LOC: NCHCN 16:08
PROVIDERS: PCP Family Medicine; Visit Provider Family Medicine
DX: R19.7 Diarrhea, unspecified (principal)
CPT/HCPCS: 87329; 87505; 87177

== ENCOUNTER 2023-05-31 18:23 | Emergency (ER) | payer MEDICARE, SELFPAY ==
--- NOTE | 2023-05-31 18:15 | RT.EKG_ITS ---
APPROVED REPORT Exam: Resting ECG Reason for Exam: high bp Patient Location: E HR:97 bpm ECG Measurements Heart Rate 97 AXIS VT 158 P 20 QRSd 90 QRS -9 QT 354 T 16 QTc 450 Conclusion Sinus rhythm...normal P axis, V-rate 60- 99
[2023-05-31 18:29] VITALS: BP 175/115; PULSE 106; RESP 18; TEMP 36.2; O2SAT 98
[2023-05-31 19:27] VITALS: RESP 22
--- NOTE | 2023-05-31 19:39 | ED.GENADUL_ITS ---
Discharge Plan Disposition Patient Disposition: Home Condition: Stable Discharge Details Clinical Impression: Hypertension Primary Care Provider: Dona Silva ED Provider: Liz Byers Home Meds and New Rx's Prescriptions: New lisinopril 10 mg tablet 10 mg PO DAILY Qty: 30 0RF Rx Instructions: Take 1 tablet daily aspirin 81 mg tablet,chewable 81 mg PO DAILY Qty: 30 0RF Rx Instructions: Chew one tablet daily No Action estradiol [Yuvafem] 10 mcg tablet 10 mcg vaginal DAILY ibuprofen [Advil] 200 MG tablet 800 mg PO PRN clonazepam [Klonopin] 1 mg tablet 1 mg PO BID PRN dextroamphetamine-amphetamine [Adderall XR] 25 mg capsule,extended release 24hr 10 mg PO DAILY rosuvastatin [Crestor] 20 mg tablet 20 mg PO DAILY sertraline [Zoloft] 50 mg Tablet 50 mg PO DAILY Discharge Instructions Instructions: Hypertension (ED) Additional Instructions: No evidence of stroke on the CT. You do have 50% stenosis of a right cerebral artery. Please take the blood pressure medications as directed once daily. Continue to monitor your blood pressure at the same time every day. Please take a chewable baby aspirin a day. Follow up with primary care provider in 3-5 days. Return to ED sooner if any worsening or concerns. Increase oral fluids. Referrals: Dona Silva [Primary Care Provider] - 3 days Valentina Handley MD [ [facility] STAFF PHYSICIAN] - 1 week Discharge Data Discharge Date/Time-TO BE ENTERED AT DEPARTURE: 05/31/23 22:34 Medical Decision Making 67-year-old female presents to the ER with a chief complaint of high blood pressure readings, seeing flashes of white light and red light, mild headache and feeling foggy. Patient states that she was sitting earlier when she began feeling foggy. She did take her blood pressure approximately 3 times with different devices which all read a diastolic over 100. Patient has a past medical history of fibromyalgia, insomnia anxiety ADD, do Butrans contracture of left hand she does not currently take any blood pressure medication. She does take Adderall for ADD. Surgical history includes colonoscopy and Fundiplication. Cardiac work-up ordered, head CT and chest x-ray. CT shows 50% stenosis of the proximal right posterior communicating artery no occlusion. Otherwise CT is within normal limits. I will give patient 81 mg chewable aspirin and 10 mg lisinopril with prescription. Will encourage close follow-up with PCP. Discussed strict return instructions. Medical Records Medical records reviewed: Yes I reviewed the patient's medical records. Imaging Data Radiologic Study: Imaging: CT Scan Radiologist's impression: FINDINGS: ANTERIOR CIRCULATION: Right internal carotid artery: The intracranial segment is patent with no significant stenosis. No aneurysm. Right middle cerebral artery: No occlusion or significant stenosis. No aneurysm. Right anterior cerebral artery: No occlusion or significant stenosis. No aneurysm. Left internal carotid artery: The intracranial segment is patent with no significant stenosis. No aneurysm. Left middle cerebral artery: No occlusion or significant stenosis. No aneurysm. OSWALD TOMAS Preliminary Radiology Report Page 2 of 3 Left anterior cerebral artery: No occlusion or significant stenosis. No aneurysm. POSTERIOR CIRCULATION: Right vertebral artery: Dominant. No occlusion or significant stenosis. No aneurysm. Left vertebral artery: No occlusion or significant stenosis. No aneurysm. Basilar artery: No occlusion or significant stenosis. No aneurysm. A diffusely small caliber vessel. Right posterior cerebral artery: origin, anatomic variant. There is a moderate, approximately 50% stenosis of the proximal right posterior communicating artery. Hypoplastic right P1 segment. No occlusion. No aneurysm. Left posterior cerebral artery: No occlusion. Hypoplastic right P1 segment. origin. No aneurysm. HEAD: Brain: No acute intracranial hemorrhage. No significant white matter disease. No territorial edema. Cerebral ventricles: No ventriculomegaly. Bones/joints: No acute fracture. Hyperostosis frontoparietalis. Paranasal sinuses: Small air- fluid levels of bilateral maxillary sinuses, slightly larger on the left. Mastoid air cells: Visualized mastoids are normal. No mastoid effusion. Soft tissues: Unremarkable. IMPRESSION: 1. No large vessel occlusion. 2. origin of bilateral posterior cerebral arteries. 3. 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 No occlusion. Lab Data Lab results reviewed: Yes I reviewed the patient's lab results. Labs: Laboratory Tests Range/Units 05/31/23 05/31/23 05/31/23 20:00 20:00 20:10 WBC (4.4-10.8) 10^3/uL 5.13 RBC (3.93-5.22) 10^6/uL 5.13 Hgb (11.2-15.7) g/dL 15.0 Hct (36.0-46.0) % 43.9 MCV (80-95) fL 86 MCH (27.0-33.0) pg 29.2 MCHC (32.0-36.0) % 34.2 RDW (11.7-14.6) % 11.9 Plt Count (130-400) 10^3/uL 216 MPV (8.0-11.0) fL 10.2 Immature Gran % 0.2 Neutrophils % 64.7 Lymphocytes % 24.8 Monocytes % 7.6 Eosinophils % 2.3 Basophils % 0.4 Nucleated RBC % (0.0-0.3) % 0.0 Absolute Neutrophils (1.2-6.7) 10^3/uL 3.32 Absolute Lymphocytes (1.2-3.4) 10^3/uL 1.27 Absolute Monocytes (0.1-0.8) 10^3/uL 0.39 Absolute Eosinophils (0.0-0.7) 10^3/uL 0.12 Absolute Basophils (0.0-0.2) 10^3/uL 0.02 Sodium (136-145) mmol/L 145 Potassium (3.5-5.1) mmol/L 3.5 Chloride (98-107) mmol/L 108 H Carbon Dioxide (21.0-32.0) mmol/L 27.2 Anion Gap (3-11) mmol/L 9.8 BUN (7-18) mg/dL 9 Creatinine (0.55-1.02) mg/dL 0.8 Est GFR (CKD-EPI 2020) (mL/min/1.73m2) 81.72 Glucose (74-106) mg/dL 98 Calcium (8.5-10.1) mg/dL 9.1 Magnesium (1.8-2.4) mg/dL 1.8 Total Bilirubin (0.2-1.0) mg/dL 0.6 AST (15-37) U/L 15 ALT (14-59) U/L 12 L Alkaline Phosphatase (46-116) U/L 94 Troponin I (<or=60) ng/L < 50 Total Protein (6.4-8.2) g/dL 7.4 Albumin (3.4-5.0) g/dL 3.8 Urine Color (Yellow) Yellow Urine Clarity (Clear) Clear Urine pH (5-8) 6.0 Ur Specific [place] (1.005-1.025) <= 1.005 Urine Protein (Negative) mg/dL Negative Urine Ketones (Negative) mg/dL Negative Urine Blood (Negative) Trace-intact H Urine Nitrite (Negative) Negative Urine Bilirubin (Negative) Negative Urine Urobilinogen (Up to 0.2) mg/dL 0.2 Ur Leukocyte Esterase (Negative) Negative Urine RBC (0-2) HPF 0-2 Urine WBC (0-5) HPF 0-2 Ur Epithelial Cells (Negative) HPF Few Urine Crystals (Negative) HPF Negative Urine Bacteria (Negative) HPF Negative Urine Casts (Negative) LPF Negative Urine Mucus (Negative) Negative Ur Culture Indicated? No Urine Glucose (Negative) mg/dL Negative Range/Units 05/31/23 22:46 WBC (4.4-10.8) 10^3/uL RBC (3.93-5.22) 10^6/uL Hgb (11.2-15.7) g/dL Hct (36.0-46.0) % MCV (80-95) fL MCH (27.0-33.0) pg MCHC (32.0-36.0) % RDW (11.7-14.6) % Plt Count (130-400) 10^3/uL MPV (8.0-11.0) fL Immature Gran % Neutrophils % Lymphocytes % Monocytes % Eosinophils % Basophils % Nucleated RBC % (0.0-0.3) % Absolute Neutrophils (1.2-6.7) 10^3/uL Absolute Lymphocytes (1.2-3.4) 10^3/uL Absolute Monocytes (0.1-0.8) 10^3/uL Absolute Eosinophils (0.0-0.7) 10^3/uL Absolute Basophils (0.0-0.2) 10^3/uL Sodium (136-145) mmol/L Potassium (3.5-5.1) mmol/L Chloride (98-107) mmol/L Carbon Dioxide (21.0-32.0) mmol/L Anion Gap (3-11) mmol/L BUN (7-18) mg/dL Creatinine (0.55-1.02) mg/dL Est GFR (CKD-EPI 2020) (mL/min/1.73m2) Glucose (74-106) mg/dL Calcium (8.5-10.1) mg/dL Magnesium (1.8-2.4) mg/dL Total Bilirubin (0.2-1.0) mg/dL AST (15-37) U/L ALT (14-59) U/L Alkaline Phosphatase (46-116) U/L Troponin I (<or=60) ng/L Cancelled Total Protein (6.4-8.2) g/dL Albumin (3.4-5.0) g/dL Urine Color (Yellow) Urine Clarity (Clear) Urine pH (5-8) Ur Specific [place] (1.005-1.025) Urine Protein (Negative) mg/dL Urine Ketones (Negative) mg/dL Urine Blood (Negative) Urine Nitrite (Negative) Urine Bilirubin (Negative) Urine Urobilinogen (Up to 0.2) mg/dL Ur Leukocyte Esterase (Negative) Urine RBC (0-2) HPF Urine WBC (0-5) HPF Ur Epithelial Cells (Negative) HPF Urine Crystals (Negative) HPF Urine Bacteria (Negative) HPF Urine Casts (Negative) LPF Urine Mucus (Negative) Ur Culture Indicated? Urine Glucose (Negative) mg/dL HPI General Mode of arrival: ambulatory . Date/Time Provider Initiated Documentation: 05/31/23 19:17 . Information obtained by: patient, RN notes reviewed and old records reviewed . HPI Narrative: 67-year-old female presents to the ER with a chief complaint of high blood pressure readings, seeing flashes of white light and red light, mild headache and feeling foggy. Patient states that she was sitting earlier when she began feeling foggy. She did take her blood pressure approximately 3 times with different devices which all read a diastolic over 100. Patient has a past medical history of fibromyalgia, insomnia anxiety ADD, do Butrans contracture of left hand she does not currently take any blood pressure medication. She does take Adderall for ADD. Surgical history includes colonoscopy and Fundiplication. Related Data Home Medications Medication Instructions Recorded Confirmed ibuprofen 200 mg tablet (Advil) 800 mg PO PRN 07/12/17 05/31/23 clonazepam 1 mg tablet (Klonopin) 1 mg PO BID PRN 05/11/22 05/31/23 dextroamphetamine-amphetamine ER 10 mg PO DAILY 05/11/22 05/31/23 25 mg 24hr capsule,extend release (Adderall XR) rosuvastatin 20 mg tablet (Crestor) 20 mg PO DAILY 05/11/22 05/31/23 estradiol 10 mcg vaginal tablet 10 mcg vaginal DAILY 07/26/22 05/31/23 (Yuvafem) aspirin 81 mg chewable tablet 81 mg PO DAILY #30 tabs 05/31/23 lisinopril 10 mg tablet 10 mg PO DAILY Hypertension #30 05/31/23 tabs sertraline 50 mg tablet (Zoloft) 50 mg PO DAILY 05/31/23 05/31/23 Previous Rx's Medication Instructions Recorded aspirin 81 mg chewable tablet 81 mg PO DAILY #30 tabs 05/31/23 lisinopril 10 mg tablet 10 mg PO DAILY Hypertension #30 05/31/23 tabs Allergies Allergy/AdvReac Type Severity Reaction Status Date / Time citalopram Allergy Severe unknown Verified 05/31/23 19:27 codeine Allergy Intermediate unknown Verified 05/31/23 19:27 fluoxetine [From Prozac] AdvReac Intermediate unknown Verified 05/31/23 19:27 sulfamethoxazole AdvReac Intermediate Nausea Verified 05/31/23 19:27 [From Bactrim] trimethoprim [From Bactrim] AdvReac Intermediate Nausea Verified 05/31/23 19:27 duloxetine [From Cymbalta] AdvReac Mild unknown Verified 05/31/23 19:27 General Stated Complaint: GenMedical MAKENZIE: 3 Review of Systems All systems reviewed & are unremarkable except as noted in HPI and below Constitutional Constitutional: Reports headache(s) Eyes Eyes: Reports seeing flashes ENT Ears, Nose, Mouth, and Throat: Reports headache(s) Cardiovascular Cardiovascular: Denies chest pain, Reports lightheadedness, Denies dyspnea on exertion and Denies orthopnea Respiratory Respiratory: Denies dyspnea on exertion Neurologic Neurologic: Reports headache(s) PFSH All Active Problems Hypertension (Chronic) Trigger finger, left middle finger (Acute) Depo-Medrol injection: 12/12/2022 Bilateral carpal tunnel syndrome (Acute) Dupuytren's contracture of left hand (Acute) Left hand pain (Acute) Paresthesias in left hand (Acute) Impingement syndrome of right shoulder (Acute) Normal colonoscopy (Acute) Fibromyalgia (Acute) Insomnia (Acute) Anxiety (Chronic) ADD (attention deficit disorder) (Acute) Adenomatous polyps (Acute) 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) Medical History (Updated 05/31/23 @ 22:02 by Liz Byers NP) Adenomatous colon polyp GERD (gastroesophageal reflux disease) Loose right total knee arthroplasty PTSD (post-traumatic stress disorder) Surgical History H/O colonoscopy H/O esophagogastroduodenoscopy H/O wisdom tooth extraction Status post laparoscopic Lisa fundoplication Social History Smoking/Tobacco Use Status: Former Tobacco Use Quit Date: 11/27/96 Smoking risk assessment performed?: Yes Alcohol Intake: former Drug use: Never Substance use type: does not use Housing: house Do you feel safe at home: Yes Do you feel safe in your relationship?: Yes Exam Narrative Exam Narrative: Constitutional: Alert and oriented x3. Appears stated age. Obese body habitus. Head: Normocephalic, no trauma. Eyes: Pupils PERRL, Red reflex noted, EOM's intact. Eyelids symmetrical without lesions, discharge, or swelling. ENT: Bilateral TM's WNL, External ear normal to inspection, no mastoid TTP, swelling, or erythema, Nasal turbinates WNL, no nasal discharge. Normal dentition, Posterior pharynx WNL, no exudate. Chest: RRR, Normal S1, S2, distal pulses intact. Resp: Lungs clear to auscultation bilaterally, no wheezes, rales, or rhonchi. Abdomen: Soft, non-distended, Normoactive bowel sounds all 4 quads. Musculoskeletal: Normal gait, 5/5 strength to all four extremities. Skin: No suspicious rashes or lesions. Capillary refill less than 2 sec. Neurologic: Cranial nerves II-XII intact. Alert and oriented x 3. Motor: No deficits noted. Sensory: Intact bilaterally all 4 extremities. Reflexes: DTR's intact bilaterally.. Hematologic/Lymphatic: No ecchymosis, no lymphadenopathy. Course Vital Signs Vital signs: Vital Signs Temperature 36.2 C L 05/31/23 18:29 Pulse 106 H 05/31/23 18:29 Respiratory Rate 18 05/31/23 18:29 Blood Pressure 175/115 H 05/31/23 18:29 Pulse Oximetry 98 05/31/23 18:29 Temperature 36.2 C L 05/31/23 18:29 Temperature Source Temporal Artery Scan 05/31/23 18:29 Pulse 106 H 05/31/23 18:29 Respiratory Rate 22 05/31/23 19:27 Respiratory Effort Normal, Non-Labored 05/31/23 19:27 Respiratory Depth Normal 05/31/23 19:27 Respiratory Pattern Normal 05/31/23 19:27 Blood Pressure 175/115 H 05/31/23 18:29 Blood Pressure Position Sitting 05/31/23 18:29 Pulse Oximetry 98 05/31/23 18:29 Oxygen Delivery Method Room Air 05/31/23 18:29 Oxygen Flow Rate 0 05/31/23 18:29 Pain Level 0 05/31/23 18:29
--- NOTE | 2023-05-31 19:45 | DI.RAD_ITS ---
Exam(s) XR CHEST 2V PA LATERAL EXAM: XR CHEST 2V PA LATERAL CLINICAL HISTORY: High blood pressure, dizzy TECHNIQUE: 2D digital imaging was performed. COMPARISON: CR CHEST 2 VIEWS PA,LAT from 10/23/2014 FINDINGS: HEART: Normal size. Aorta: Not dilated. PULMONARY VASCULATURE: Normal. LUNGS: Basilar scarring, similar to prior. No area of consolidation. PLEURAL SPACE: No pleural effusion or pneumothorax. BONE:Old left 6 rib fracture. IMPRESSION: No acute abnormality. DATA REPOSITORY: RADIATION DOSE DELIVERED:
--- NOTE | 2023-05-31 19:45 | DI.CT_ITS ---
Exam(s) CT BRAIN NECK CTA EXAM: CT BRAIN NECK CTA CLINICAL HISTORY: Visual disturbances, Headache, HTN. TECHNIQUE: Imaging Protocol: Axial CT angiography was performed with multi-slice acquisition and mu lti-planar and 3D reconstructions. CONTRAST MATERIAL: Intravenous: Omnipaque 350 Contrast volume:structured data in ml COMPARISON: CT ABD PELVIS WITH CONTRAST from 11/24/2010 FINDINGS: CT Head W/O and W contrast: Ventricles and Extra axial spaces: Normal in size and morphology for the patient's age. Hemorrhage: None. Cerebral parenchyma: Normal. Midline shift: None. Brainstem/Cerebellum: Normal. Calvarium: Hyperostosis frontoparietalis. Visualized Paranasal sinuses/Mastoids: Clear. Soft Tissues: Unremarkable. Enhancement: Normal. CTA Brain W: Internal Carotid Arteries: Petrous: Normal. Cavernous: Normal. Cerebral: Normal. Middle Cerebral Arteries: Right: No aneurysm, occlusion or significant stenosis. Left: No aneurysm, occlusion or significant stenosis. Anterior Cerebral Arteries: Right: No aneurysm, occlusion or significant stenosis. Left: No aneurysm, occlusion or significant stenosis. Posterior cerebral Arteries: Right: origin. No aneurysm,. Approximate 50 percent stenosis proximal right posterior communi cating artery. Hypoplastic right P1 segment. Left: origin. Hypoplastic P1 segment. No aneurysm, . Vertebral Arteries: Right: Dominant. No aneurysm, occlusion or significant stenosis. Left: No aneurysm, occlusion or significant stenosis. Basilar Artery: No aneurysm, occlusion or significant stenosis. CTA Neck W: Common Carotid: Right: No dissection, occlusion or significant stenosis. Left: No dissection, occlusion or significant stenosis. External Carotid: Right: No dissection, occlusion or significant stenosis. Left: No dissection, occlusion or significant stenosis. Internal Carotid: Right: No dissection, occlusion or significant stenosis. Left: No dissection, occlusion or significant stenosis. Vertebral Artery: Right: No dissection, occlusion or significant stenosis. Left: No dissection, occlusion or significant stenosis. Lung Apices: Normal. Bones: Degenerative changes of the cervical spine. Old right clavicle fracture. No acute fracture. Soft Tissues: Normal. IMPRESSION: 1. CTA brain: Moderate stenosis proximal right posterior communicating artery. origin of the p osterior cerebral arteries. Bilateral hypoplastic P1 segments. 2. Unremarkable CT Head. 3. Normal CTA examination of the neck. No significant plaque. RADIATION DOSE DELIVERED: 1,932.58mGy.cm Total DLP DATA REPOSITORY: All CT scans at this facility are submitted to the National Radiology Data Registry (NRDR) Dose Index Registry (DIR) with the [employer] ([employer]). RADIATION OPTIMIZATION: All CT scans at this facility use at least one of these dose optimization te chniques: automated exposure control; mA and/or kV adjustment per patient size (includes targeted exa ms where dose is matched to clinical indication); or iterative reconstruction.
[2023-05-31 20:09] LABS: Abs Immature Grans 0.01 10^3/uL (0.0-0.06); Absolute Basophil Count 0.02 10^3/uL (0.0-0.2); Absolute Eosinophil Count 0.12 10^3/uL (0.0-0.7); Absolute Lymphocyte Count 1.27 10^3/uL (1.2-3.4); Absolute Monocyte Count 0.39 10^3/uL (0.1-0.8); Absolute Neutrophil Count 3.32 10^3/uL (1.2-6.7); Basophils % 0.4; Eosinophils % 2.3; HCT 43.9 % (36.0-46.0); Immature Grans % 0.2; Lymphocytes % 24.8; MCH 29.2 pg (27.0-33.0); MCHC 34.2 % (32.0-36.0); MCV 86 fL (80-95); MPV 10.2 fL (8.0-11.0); Monocytes % 7.6; Neutrophils % 64.7; Platelet Count 216 10^3/uL (130-400); RBC 5.13 10^6/uL (3.93-5.22); RDW 11.9 % (11.7-14.6); RDW-SD 37.8 fL; WBC 5.13 10^3/uL (4.4-10.8)
[2023-05-31 20:19] LABS: Bilirubin Negative (Negative); Blood Trace-intact (Negative); Clarity Clear (Clear); Glucose Negative (Negative); Ketones Negative (Negative); Leukocyte Esterase Negative (Negative); Nitrite Negative (Negative); Specific Gravity <= 1.005 (1.005-1.025); Urobilinogen 0.2 mg/dL (Up to 0.2)
[2023-05-31 20:26] LABS: ALT 12 U/L (14-59); AST 15 U/L (15-37); Albumin 3.8 g/dL (3.4-5.0); Alkaline Phosphatase 94 U/L (46-116); Anion Gap 9.8 mmol/L (3-11); BUN 9 mg/dL (7-18); Bilirubin, Total 0.6 mg/dL (0.2-1.0); CO2 27.2 mmol/L (21.0-32.0); CREATININE 0.8 mg/dL (0.55-1.02); Calcium 9.1 mg/dL (8.5-10.1); Chloride 108 mmol/L (98-107); Estimated GFR 81.72 (mL/min/1.73m2); Glucose 98 mg/dL (74-106); Magnesium 1.8 mg/dL (1.8-2.4); Potassium 3.5 mmol/L (3.5-5.1); Sodium 145 mmol/L (136-145); Total Protein 7.4 g/dL (6.4-8.2); Troponin I < 50 ng/L (<or=60)
[2023-05-31 20:29] LABS: Bacteria Negative HPF (Negative); C & S Indicated? No; Casts Negative LPF (Negative); Crystals Negative HPF (Negative); Epithelial Cells Few HPF (Negative); Mucus Negative (Negative); RBC 0-2 HPF (0-2); WBC 0-2 HPF (0-5)
[2023-05-31] MEDS: Omnipaque 350 MG/ML 100 ML BTL IJ (20:29)
[2023-05-31] MEDS: Normal Saline - Diluent 50 ML VIAL IV (20:30)
--- NOTE | 2023-05-31 21:27 | DI.VRAD_ITS ---
PROCEDURE INFORMATION: Exam: CTA Head Without And With Contrast, Arteriography Exam date and time: 05/31/2023 8:29 PM Age: 67 years old Clinical indication: Stroke-like symptoms; Headache and visual disturbance and other: Visual disturbances, headache, HTN TECHNIQUE: Imaging protocol: Computed tomographic angiography of the head without and with contrast. Exam focused on the arteries. 3D rendering (Not supervised by radiologist): MIP and/or 3D reconstructed images were created by the technologist. Radiation optimization: All CT scans at this facility use at least one of these dose optimization techniques: automated exposure control; mA and/or kV adjustment per patient size (includes targeted exams where dose is matched to clinical indication); or iterative reconstruction. Contrast material: OMNI 350; Contrast volume: 100 ml; Contrast route: INTRAVENOUS (IV); Other technique: STROKE PROTOCOL was implemented. COMPARISON: No relevant prior studies available. FINDINGS: ANTERIOR CIRCULATION: Right internal carotid artery: The intracranial segment is patent with no significant stenosis. No aneurysm. Right middle cerebral artery: No occlusion or significant stenosis. No aneurysm. Right anterior cerebral artery: No occlusion or significant stenosis. No aneurysm. Left internal carotid artery: The intracranial segment is patent with no significant stenosis. No aneurysm. Left middle cerebral artery: No occlusion or significant stenosis. No aneurysm. Left anterior cerebral artery: No occlusion or significant stenosis. No aneurysm. POSTERIOR CIRCULATION: Right vertebral artery: Dominant. No occlusion or significant stenosis. No aneurysm. Left vertebral artery: No occlusion or significant stenosis. No aneurysm. Basilar artery: No occlusion or significant stenosis. No aneurysm. A diffusely small caliber vessel. Right posterior cerebral artery: origin, anatomic variant. There is a moderate, approximately 50% stenosis of the proximal right posterior communicating artery. Hypoplastic right P1 segment. No occlusion. No aneurysm. Left posterior cerebral artery: No occlusion. Hypoplastic right P1 segment. origin. No aneurysm. HEAD: Brain: No acute intracranial hemorrhage. No significant white matter disease. No territorial edema. Cerebral ventricles: No ventriculomegaly. Bones/joints: No acute fracture. Hyperostosis frontoparietalis. Paranasal sinuses: Small air-fluid levels of bilateral maxillary sinuses, slightly larger on the left. Mastoid air cells: Visualized mastoids are normal. No mastoid effusion. Soft tissues: Unremarkable. IMPRESSION: 1. No large vessel occlusion. 2. origin of bilateral posterior cerebral arteries. 3. 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 No occlusion. ASSESSMENT: ASPECTS ([place] Stroke Program Early CT Score) is 10. PROCEDURE INFORMATION: Exam: CTA Neck Without And With Contrast Exam date and time: 05/31/2023 8:29 PM Age: 67 years old Clinical indication: Stroke-like symptoms; Headache and visual disturbance and other: Visual disturbances, headache, HTN TECHNIQUE: Imaging protocol: Computed tomographic angiography of the neck without and with contrast. 3D rendering (Not supervised by radiologist): MIP and/or 3D reconstructed images were created by the technologist. Radiation optimization: All CT scans at this facility use at least one of these dose optimization techniques: automated exposure control; mA and/or kV adjustment per patient size (includes targeted exams where dose is matched to clinical indication); or iterative reconstruction. Contrast material: OMNI 350; Contrast volume: 100 ml; Contrast route: INTRAVENOUS (IV); COMPARISON: CR XR SHOULDER RT COMPLETE 2+V 12/09/2019 2:47 PM FINDINGS: Right common carotid artery: No significant stenosis. No dissection or occlusion. Right internal carotid artery: No significant stenosis of the extracranial segment. No dissection or occlusion. Right external carotid artery: No occlusion or significant stenosis of the origin. Left common carotid artery: No significant stenosis. No dissection or occlusion. Left internal carotid artery: No significant stenosis of the extracranial segment. No dissection or occlusion. Left external carotid artery: No occlusion or significant stenosis of the origin. Right vertebral artery: No significant stenosis. No dissection or occlusion. Left vertebral artery: No significant stenosis. No dissection or occlusion. Soft tissues: No significant soft tissue swelling. Bones/joints: No acute fracture. Old fracture deformity of the mid right clavicle. Multilevel degenerative disc disease without significant spinal canal stenosis. IMPRESSION: 1. Normal right and left extracranial internal carotid arteries by NASCET criteria. 2. Patent bilateral vertebral arteries with a dominant right vertebral. REFERENCES: NASCET CRITERIA. The degree of stenosis in the cervical segment of the internal carotid artery is based on NASCET criteria. Normal is no stenosis. Mild is less than 50% stenosis. Moderate is 50-69% stenosis. Severe is 70% to 99% stenosis. Total occlusion is no detectable patent lumen. Dictated and Authenticated by: Hernan Allan MD. Ordering:FREEMAN Hill MD
--- NOTE | 2023-05-31 21:30 | DI.VRAD_ITS ---
PROCEDURE INFORMATION: Exam: XR Chest Exam date and time: 05/31/2023 8:38 PM Age: 67 years old Clinical indication: Other: High blood pressure, dizzy TECHNIQUE: Imaging protocol: Radiologic exam of the chest. Views: 2 views. COMPARISON: CT BRAIN NECK CTA 05/31/2023 8:29 PM FINDINGS: Lungs: Mild atelectatic changes at the left lung base. Pleural spaces: No pleural effusion or pneumothorax. Heart/Mediastinum: The heart and mediastinum are normal in size. Bones/joints: Old healed fracture of the left 6th rib. IMPRESSION: Atelectatic changes at the left lung base. Dictated and Authenticated by: Hernan Allan MD. Ordering:FREEMAN Hill MD
[2023-05-31] MEDS: Lisinopril 10 MG TAB PO (22:05)
[2023-05-31] MEDS: Aspirin 81 MG CHEW CH (22:05)
[2023-05-31 22:22] VITALS: BP 153/80; PULSE 79; RESP 20; TEMP 37; O2SAT 96
== END 2023-05-31 22:34 | disposition home or self-care (01) ==
PROVIDERS: Emergency Provider Registered Nurse Emergency; PCP Family Medicine
DX: I10 Essential (primary) hypertension (principal)
CPT/HCPCS: 70496; 70498; 80053; 93005; 99285; 71046; 81003; 81015; 83735; 84484; 85025; 93010; 99284; J3490

== ENCOUNTER → 2023-06-06 13:39 | Outpatient (BNVA) | payer MEDICARE, SELFPAY | PROVIDERS: PCP Family Medicine; Visit Provider Psychiatry & Neurology Neurology | DX: I16.0 Hypertensive urgency (principal); H53.9 Unspecified visual disturbance | CPT/HCPCS: 99215 ==

== ENCOUNTER 2023-07-14 12:25 | Outpatient (REF) | payer MEDICARE, SELFPAY ==
[2023-07-14 16:04] LABS: Bilirubin Negative (Negative); Blood Trace-intact (Negative); Clarity Clear (Clear); Glucose Negative (Negative); Ketones Negative (Negative); Leukocyte Esterase Negative (Negative); Nitrite Negative (Negative); Specific Gravity >= 1.030 (1.005-1.025); Urobilinogen 0.2 mg/dL (Up to 0.2)
[2023-07-14 16:36] LABS: Epithelial Cells Rare HPF (Negative); RBC 0-2 HPF (0-2); WBC 0-2 HPF (0-5)
[2023-07-14 16:37] LABS: Bacteria Negative HPF (Negative); C & S Indicated? No; Crystals Negative HPF (Negative); Mucus Negative (Negative)
== END 2023-07-14 12:26 | disposition home or self-care (01) ==
LOC: NCHCN 12:25
PROVIDERS: PCP Family Medicine; Visit Provider Family Medicine
DX: N30.20 Other chronic cystitis without hematuria (principal); R82.998 Other abnormal findings in urine
CPT/HCPCS: 81003; 81015

== ENCOUNTER 2023-10-03 15:21 | Outpatient (REF) | payer MEDICARE, SELFPAY ==
[2023-10-03 14:47] LABS: HCT 42.8 % (36.0-46.0); HGB 14.6 g/dL (11.2-15.7); MCH 29.3 pg (27.0-33.0); MCHC 34.1 % (32.0-36.0); MCV 86 fL (80-95); MPV 11.3 fL (8.0-11.0); Platelet Count 200 10^3/uL (130-400); RBC 4.99 10^6/uL (3.93-5.22); RDW 12.2 % (11.7-14.6); RDW-SD 38.3 fL; WBC 3.68 10^3/uL (4.4-10.8)
[2023-10-03 15:29] LABS: ALT 21 U/L (14-59); AST 20 U/L (15-37); Albumin 3.9 g/dL (3.4-5.0); Alkaline Phosphatase 85 U/L (46-116); Anion Gap 10.6 mmol/L (3-11); BUN 8 mg/dL (7-18); Bilirubin, Total 0.7 mg/dL (0.2-1.0); CO2 24.4 mmol/L (21.0-32.0); CREATININE 0.7 mg/dL (0.55-1.02); Calcium 9.3 mg/dL (8.5-10.1); Calculated LDL 61 mg/dL (<100); Chloride 107 mmol/L (98-107); Cholesterol 131 mg/dL (<200); Estimated GFR 95.92 (mL/min/1.73m2); Glucose 92 mg/dL (74-106); HDL Cholesterol 54 mg/dL (40-60); Potassium 4.1 mmol/L (3.5-5.1); Sodium 142 mmol/L (136-145); Triglyceride 81 mg/dL (<150)
[2023-10-03 15:46] LABS: Vitamin D 25 Total 14.4 ng/mL (30-100)
== END 2023-10-03 15:22 | disposition home or self-care (01) ==
LOC: NCHCN 15:21
PROVIDERS: PCP Family Medicine; Visit Provider Family Medicine
DX: E66.9 Obesity, unspecified (principal); Z00.00 Encounter for general adult medical examination without abnormal findings; N30.20 Other chronic cystitis without hematuria
CPT/HCPCS: 80053; 80061; 82306; 85027

== ENCOUNTER → 2023-12-07 02:17 | Outpatient (CLI) | payer MEDICARE, SELFPAY ==
--- NOTE | 2023-12-07 | DI.DEXA_ITS ---
Exam(s) XR DEXA BONE DENSITY W/WO NIGEL EXAM: XR DEXA BONE DENSITY W/WO NIGEL CLINICAL HISTORY: SCREENING FOR OSTEOPOROSIS IN POSTMENOPAUSAL WOMAN,Z78.0 TECHNIQUE: Routine DEXA evaluation of the lumbar spine, hip, or forearm. COMPARISON: No exams were available for comparison FINDINGS: Performed on a Hologic unit. Lateral image: No compression fracture evident. Lumbar Spine total T-score: 2.2 Hip total T-score:0.7 Independent reading at the level of the femoral neck yields T-score of -0.8 Forearm total T-score: -0.3 IMPRESSION: Bone mineral density measures in the normal range. Fracture risk is low. Note: Any spine fracture indicates 5x risk for subsequent spine fracture and 2x risk for subsequent h ip fracture. World Health Organization criteria for BMD interpretation classify patients: Normal...... T- Score at or above -1.0 Osteopenic... T- Score between -1.0 and -2.5 Osteoporosis... T-Score at or below -2.5
== END ==
PROVIDERS: PCP Family Medicine; Visit Provider Family Medicine
DX: Z78.0 Asymptomatic menopausal state (principal); Z13.820 Encounter for screening for osteoporosis
CPT/HCPCS: 77080

== ENCOUNTER → 2024-04-01 01:56 | Outpatient (CLI) | payer MEDICARE, SELFPAY ==
--- NOTE | 2024-04-01 | DI.MAMMO_ITS ---
Exam(s) MAMMO SCREENING EXAM: MAMMO SCREENING CLINICAL HISTORY: SCREENING MAMMO FOR BREAST CANCER Z12.31 TECHNIQUE: Mammograms were interpreted according to the usual protocol including computer analysis w [employer] CAD system, tomosynthesis and C-view imaging. COMPARISON: 2015 through 2021 FINDINGS: The breasts are composed of mainly fatty density , Breast Density category A. No suspicious masses or suspicious microcalcifications are seen. No skin thickening or abnormal axillary lymph nodes are seen. There has been no significant change from prior exams. IMPRESSION: BI-RADS Category 1, Negative mammogram Yearly screening mammography is recommended. Breast Density - Category A, fatty density. A negative radiographic report should not delay biopsy if a dominant or clinically suspicious mass is present. Up to ten percent of cancers are not identified on mammography. A negative report may reinforce clinical impression. Adenosis and dense breasts may obscure an underlying neoplasm. False positive reports average 6 to 10%. Patient will receive a letter notifying them of these results.
== END ==
PROVIDERS: PCP Family Medicine; Visit Provider Family Medicine
DX: Z12.31 Encounter for screening mammogram for malignant neoplasm of breast (principal)
CPT/HCPCS: 77063; 77067

== ENCOUNTER 2024-05-31 11:15 | Outpatient (REF) | payer MEDICARE, SELFPAY | END 2024-05-31 11:16 | disposition home or self-care (01) | LOC: NCHCN 11:15 | PROVIDERS: PCP Family Medicine; Visit Provider Family Medicine | DX: N39.0 Urinary tract infection, site not specified (principal) | CPT/HCPCS: 87086 ==

== ENCOUNTER 2025-04-16 03:06 | Outpatient (CLI) | payer MEDICARE, SELFPAY ==
--- NOTE | 2025-04-16 12:21 | W.NUTRFU ---
Date of service: 04/16/25 Time of Service: 11:00 Nutrition Note NOTE: Chantell came in for nutrition visit today - referred from provider for help with weight mgt. Chantell shares she feels unhealthy, fatigued, depressed and wants some help with losing weight and feeling better in regards to diet choices and how they impact her. She currently does not eat breakfast most days and not big on lunch either. Eat dinner regularly with her and tends to snack in the evening after 7pm and tends to go to be late. She does have a hx of insomnia/trouble sleeping - we reviewed how this impacts wt mgt She does not currently exercise - shares that she was walking about 4 miles each day when living in [place] but moved here 16 years ago and had knee surgery and it didn't go well. She cites knee pain as limiting and also with Dupuytren's contacture of hands. We reviewed trouble shooting any way she can. She has a hx of vitamin D deficiency but supplementing now - suggest repeat lab and supplement adjustments as needed. Chantell manages depression - suggested diet changes and choosing anti-inflammatory food choices as well as considering high dose EPA fish oil at 5g per day as it has been shown to help with clnical depression and would improve her n-6 to n-3 intake ratio. Initial assment of diet is low in fiber and protein and high in added sugar and refined starch choices. We reviewed this and how to use menu planning to address through AI - went over the macro goals of ~1650 kcals, 100-120g protein, 55 g fat, 165-185g total carb and limit SFA and added sugar to <20g and trying to hit at least 25 g fiber per day. We reviewed that added sugar, protein, and fiber were ibrahim to track and ensure consistent intake of (or lack of in case of ). We looked at also at another option - which would be creating menus first that meet her goals and then trying to get as consistent with following them as possible. Showed her menu planning resource using AI that can revise menus countless amount of times based on her preferences, dislikes, desirable eating pattern, food budget, etc... She has my contact info should she desire follow up, or have additional questions/need for resources. Time Spent in Nutritional Counseling and Treatment: 25 min
== END 2025-04-16 03:07 | disposition home or self-care (01) ==
LOC: DS 03:06
PROVIDERS: PCP Family Medicine; Visit Provider Dietitian, Registered
DX: E66.9 Obesity, unspecified (principal)
CPT/HCPCS: 123; 97802; 00123

== ENCOUNTER 2025-07-11 18:14 | Outpatient (REF) | payer MEDICARE, SELFPAY ==
[2025-07-11 21:12] LABS: Abs Immature Grans 0.01 10^3/uL (0.0-0.06); HCT 44.6 % (36.0-46.0); HGB 15.4 g/dL (11.2-15.7); Immature Grans % 0.2 %; MCH 29.4 pg (27.0-33.0); MCHC 34.5 % (32.0-36.0); MCV 85 fL (80-95); MPV 11.1 fL (8.0-11.0); Platelet Count 213 10^3/uL (130-400); RBC 5.24 10^6/uL (3.93-5.22); RDW 12.1 % (11.7-14.6); RDW-SD 37.7 fL; WBC 4.14 10^3/uL (4.4-10.8)
[2025-07-11 21:29] LABS: ALT 12 U/L (14-59); AST 11 U/L (15-37); Albumin 4.3 g/dL (3.4-5.0); Alkaline Phosphatase 74 U/L (46-116); Anion Gap 13.9 mmol/L (3-11); BUN 12 mg/dL (7-18); Bilirubin, Total 0.7 mg/dL (0.2-1.0); CO2 24.1 mmol/L (21.0-32.0); Calcium 9.2 mg/dL (8.5-10.1); Chloride 102 mmol/L (98-107); Estimated GFR 70.07 (mL/min/1.73m2); Glucose 101 mg/dL (74-106); Potassium 3.7 mmol/L (3.5-5.1); Sodium 140 mmol/L (136-145); Total Protein 7.3 g/dL (6.4-8.2)
== END 2025-07-11 18:15 | disposition home or self-care (01) ==
LOC: NCHCN 18:14
PROVIDERS: PCP Family Medicine; Visit Provider Family Medicine
DX: R10.11 Right upper quadrant pain (principal)
CPT/HCPCS: 80053; 85025

== ENCOUNTER 2025-07-22 02:07 | Outpatient (CLI) | payer MEDICARE, SELFPAY ==
--- NOTE | 2025-07-22 | DI.US_ITS ---
Exam(s) US ABDOMEN LIMITED EXAM: US ABDOMEN LIMITED CLINICAL HISTORY: RUQ abd pain R10.11 TECHNIQUE: Ultrasound abdomen performed using standard protocol. COMPARISON: CT ABD PELVIS WITH CONTRAST from 11/24/2010 FINDINGS: PANCREAS: Normal where visualized. LIVER: Normal. Hepatopetal flow in the Portal Vein. The liver measures in 15.4 cm length. No evidence of a hepatic mass. GALLBLADDER:There are mobile gallstones present. No evidence of wall thickening. No pericholecystic fluid identified. BILIARY SYSTEM: Common bile duct measures < 7 mm. No intrahepatic biliary ductal dilation. CORONA'S SIGN: Negative. RIGHT KIDNEY: Kidney is normal in size. No evidence of renal calculi. No evidence of hydronephrosis. No renal mass or cyst identified. ASCITES: None seen. There does appear to be a small right pleural effusion. IMPRESSION: 1. Cholelithiasis. No sonographic evidence to suggest acute cholecystitis. 2. Small right pleural effusion. DATA REPOSITORY:
== END 2025-07-22 02:27 ==
PROVIDERS: PCP Family Medicine; Visit Provider Family Medicine
DX: K80.10 Calculus of gallbladder with chronic cholecystitis without obstruction (principal)
CPT/HCPCS: 76705

== ENCOUNTER 2025-07-22 02:13 | Outpatient (CLI) | payer MEDICARE, SELFPAY ==
--- NOTE | 2025-07-22 | DI.MAMMO_ITS ---
Exam(s) MAMMO SCREENING EXAM: MAMMO SCREENING CLINICAL HISTORY: screening Z12.31 TECHNIQUE: Bilateral full field digital CC and MLO mammographic images were obtained with 3D tomosynthesis and utilizing computer aided detection (CAD). COMPARISON: Comparison is made with prior examinations. FINDINGS: Masses/Architectural Distortion: No suspicious masses or areas of architectural distortion are present. Microcalcifications: No suspicious pleomorphic-type are seen. Skin Thickening/Nipple Retraction: None. IMPRESSION: 1. No significant interval change with no specific features of malignancy noted. 2. Unless there is more urgent need, screening mammography is recommended, as per [employer] guidelines. BI-RADS Category 1 - Negative Breast Density - Category A - The breast are almost entirely fatty. Breast density Category C or D implies that the patient has dense breast tissue. Dense breast tissue can make it harder to find cancer on a mammogram. Dense breast tissue is also associated with an increased risk of breast cancer. This information about the result of the mammogram report was provided to the patient to raise their awareness. Use this report when you speak with the patient about their risks for breast cancer, which includes their family history. At that time, you may recommend additional screening tests (Ultrasound or MRI) as these tests may add significant information. A negative radiographic report should not delay biopsy if a dominant or clinically suspicious mass is present. Up to ten percent of cancers are not identified on mammography. A negative report may reinforce clinical impression. Adenosis and dense breasts may obscure an underlying neoplasm. False positive reports average 6 to 10%. Patient will receive a letter notifying them of these results.
== END 2025-07-22 02:33 ==
LOC: DI 02:13
PROVIDERS: PCP Family Medicine; Visit Provider Family Medicine
DX: Z12.31 Encounter for screening mammogram for malignant neoplasm of breast (principal); R92.313 Mammographic fatty tissue density, bilateral breasts
CPT/HCPCS: 77063; 77067

== ENCOUNTER 2025-08-28 16:19 | Outpatient (REF) | payer MEDICARE, SELFPAY ==
--- NOTE | 2025-08-28 14:38 | PAPFT_PTH ---
PATIENT: Ameirca Crump LOC: [facility] U#:[id number] AGE/SX: 69/F ROOM: RE08/28/[address]: Sonia Rivero DO : 1955 BED: DIS: 08/28/2025 SPEC #: [id number] RECD: 08/28/25 17:55 STATUS: GREGORY REQ #: [id number] STEPHANIE: 08/28/25 14:[address]: Sonia Rivero DEPT: [facility] Cytology RECD BY: Rosalie Dodson ENTERED: 08/28/25 17:56 SP TYPE: PAPFT OTHR DR: Dona Silva Tissues: 1 - CX/ENDOCX FOR PAP SMEARS Procedures: PAP THIN PREP/[facility] Screening HPV DNA PROBE Comments: [id number] (HPV 16 & 18/45)
== END 2025-08-28 16:20 | disposition home or self-care (01) ==
LOC: LBN 16:19
PROVIDERS: PCP Family Medicine; Visit Provider Obstetrics & Gynecology
DX: N39.0 Urinary tract infection, site not specified (principal); Z12.4 Encounter for screening for malignant neoplasm of cervix
CPT/HCPCS: 87077; 88142; 87086; 87186; 87624

== ENCOUNTER → 2025-09-08 12:38 | Outpatient (BNVA) | payer MEDICARE, SELFPAY | PROVIDERS: PCP Family Medicine; Referring Provider Family Medicine; Visit Provider Student in an Organized Health Care Education/Training Program | DX: R10.31 Right lower quadrant pain (principal); R19.7 Diarrhea, unspecified; K92.9 Disease of digestive system, unspecified | CPT/HCPCS: 99214 ==

== ENCOUNTER 2025-09-16 11:34 | Outpatient (REF) | payer MEDICARE, SELFPAY ==
--- NOTE | 2025-09-16 11:00 | VUL_PTH ---
PATIENT: America Crump LOC: [facility] U#:[id number] AGE/SX: 69/F ROOM: RE09/16/[address]: Sonia Rivero DO : 1955 BED: DIS: 09/16/2025 SPEC #: [id number] RECD: 09/16/25 12:25 STATUS: GREGORY REQ #: [id number] STEPHANIE: 09/16/25 11:[address]: Sonia Rivero DEPT: Surgical Specimen RECD BY: Rosalie Dodson ENTERED: 09/16/25 12:26 SP TYPE: VUL OTHR DR: Dona Silva Tissues: 1 - VULVA BIOPSY Procedures: GROSS AND MICRO LEVEL 4 Comments: [id number]
== END 2025-09-16 11:35 | disposition home or self-care (01) ==
LOC: LBN 11:34
PROVIDERS: PCP Family Medicine; Visit Provider Obstetrics & Gynecology
DX: R87.612 Low grade squamous intraepithelial lesion on cytologic smear of cervix (LGSIL) (principal)
CPT/HCPCS: 88305

== ENCOUNTER 2025-09-18 03:57 | Outpatient (CLI) | payer MEDICARE, SELFPAY ==
--- NOTE | 2025-09-18 07:30 | DI.CT_ITS ---
Exam(s) CT ABDOMEN PELVIS W EXAM: CT ABDOMEN PELVIS W CLINICAL HISTORY: RLQ pain,change in bowel habits,GI DYSFUNCTION,R10.31. TECHNIQUE: Imaging Protocol: Axial computed tomography images with coronal and sagittal reformatted images were created and reviewed CONTRAST MATERIAL: Intravenous: Omnipaque 350 Contrast volume:100 ml Oral: yes COMPARISON: CT ABD PELVIS WITH CONTRAST from 11/24/[address] BRAIN NECK CTA from 05/31/2023 FINDINGS: ABDOMEN and PELVIS: Lung Bases: No acute findings. Mild basilar scarring and/or atelectasis.. Moderate size hiatal hernia. Liver: Normal density. No suspicious mass. Gallbladder and biliary tract: No radiodense calculus. No wall thickening or pericholecystic fluid. No biliary dilation. Pancreas: Normal density. No abnormal calcifications or inflammatory process. No evidence of mass. Spleen: Normal. Kidneys: Normal size, contour and axis. No radiodense stones. No obstructive uropathy. No suspicious masses seen. Adrenal glands: No masses seen. Vasculature: Abdominal aorta non-dilated. Soft tissues: Unremarkable. Bladder: Nearly empty. No gross wall thickening. No calculi.No focal mass. Bowel: Diverticulum of the descending duodenum. No obstruction. No bowel wall thickening. Appendix normal. Peritoneal cavity: No ascites. No focal collection. No mesenteric inflammatory response. No free air. Bones: Unremarkable for age. Reproductive organs: Uterine fibroids Lymph nodes: No pathologically enlarged lymph nodes. IMPRESSION:: No acute abnormality in the abdomen or pelvis. There is a moderate size hiatal hernia. Diverticulum of the descending duodenum. Uterine fibroids. RADIATION DOSE DELIVERED: Total DLP DATA REPOSITORY: All CT scans at this facility are submitted to the National Radiology Data Registry (NRDR) Dose Index Registry (DIR) with the [employer] (ACR). RADIATION OPTIMIZATION: All CT scans at this facility use at least one of these dose optimization techniques: automated exposure control; mA and/or kV adjustment per patient size (includes targeted exams where dose is matched to clinical indication); or iterative reconstruction.
[2025-09-18] MEDS: Barium Sulfate 2% W/V-Berry Smoothie 450 ML BTL PO ×2 (11:09→11:10)
[2025-09-18 11:39] LABS: Estimated GFR 70.07 (mL/min/1.73m2)
[2025-09-18] MEDS: Omnipaque 350 MG/ML 100 ML BTL IJ (13:36)
[2025-09-18] MEDS: Normal Saline - Diluent 50 ML VIAL IJ (13:37)
== END 2025-09-18 04:17 ==
LOC: DI 03:57
PROVIDERS: PCP Family Medicine; Visit Provider Student in an Organized Health Care Education/Training Program
DX: K57.10 Diverticulosis of small intestine without perforation or abscess without bleeding (principal)
CPT/HCPCS: 74177; 82565; J3490

== ENCOUNTER → 2025-09-29 11:28 | Outpatient (BNVA) | payer MEDICARE, SELFPAY | PROVIDERS: PCP Family Medicine; Referring Provider Family Medicine; Visit Provider Student in an Organized Health Care Education/Training Program | DX: K92.89 Other specified diseases of the digestive system (principal); R10.31 Right lower quadrant pain | CPT/HCPCS: 99213 ==

== ENCOUNTER 2025-10-02 14:10 | Outpatient (REF) | payer MEDICARE, SELFPAY ==
--- NOTE | 2025-10-02 13:30 | VUL_PTH ---
PATIENT: America Crump LOC: N U#:[id number] AGE/SX: 69/F ROOM: RE10/02/[address]: Sonia Rivreo DO : 1955 BED: DIS: 10/02/2025 SPEC #: [id number] RECD: 10/02/25 18:09 STATUS: GREGORY RE #: [id number] STEPHANIE: 10/02/25 13:[address]: Sonia Rivero DEPT: Surgical Specimen RECD BY: Rosalie Dodson ENTERED: 10/02/25 18:10 SP TYPE: VUL OTHR DR: Dona Silva Tissues: 1 - VULVA BIOPSY Procedures: GROSS AND MICRO LEVEL 4 Comments: [id number]
== END 2025-10-02 14:11 | disposition home or self-care (01) ==
LOC: LBN 14:10
PROVIDERS: PCP Family Medicine; Visit Provider Obstetrics & Gynecology
DX: L82.1 Other seborrheic keratosis (principal)
CPT/HCPCS: 88305